=== PATIENT | female | born 2000 | race Caucasian/White ===

== ENCOUNTER 2021-08-09 23:20 | Emergency (ER) | payer BC, OTHER | END 2021-08-10 00:12 | disposition left against medical advice (07) | LOC: ER 23:20 | DX: N93.9 Abnormal uterine and vaginal bleeding, unspecified (principal); Z53.21 Procedure and treatment not carried out due to patient leaving prior to being seen by health care provider ==

== ENCOUNTER 2021-08-10 14:59 | Emergency (ER) | payer BC ==
[~2021-08-10] VITALS: Ht 157.5 cm; Wt 108.0 kg
[2021-08-10 15:51] VITALS: BP 127/93
--- NOTE | 2021-08-10 16:17 | ER.PDOC ---
General Chief Complaint: Female Urogenital Problems Stated Complaint: FEMALE Time seen by MD: 16:09 Source: patient Exam Limitations: no limitations History of Present Illness Initial Comments This is a 21-year-old female who has a history of PCOS who has had pain and bleeding for the past 3 months. She recently moved from [place] to here and does not have a primary caregiver. She is worried she may have anemia.The patient used to have a ring IUD but this perforated through her cervix and so they had it removed. She is currently taking Metformin for her PCOS. Severity/Quality: moderate Vaginal Bleed: abnormal bleeding, heavier than periods LMP (females 10-50): 3 months Contraceptive: none Allergies: Coded Allergies: amoxicillin (Verified Allergy, Unknown, 08/10/21) diphenhydramine (Verified Allergy, Unknown, 08/10/21) ketorolac (Verified Allergy, Unknown, 08/10/21) Past Medical History Medical History: other Surgical History: cholecystectomy, tonsillectomy Social History Alcohol Use: none Drug Use: none Review of Systems Constitutional: denies no symptoms reported, denies see HPI, denies chills, denies diaphoresis, denies fever, denies malaise, denies weakness, denies other EENTM: denies no symptoms reported, denies see HPI, denies eye pain, denies blurred vision, denies tearing, denies double vision, denies ear pain, denies ear discharge, denies nose pain, denies nose congestion, denies throat pain, denies throat swelling, denies mouth pain, denies mouth swelling, denies other Respiratory: denies no symptoms reported, denies see HPI, denies cough, denies orthopnea, denies shortness of breath, denies stridor, denies wheezing, denies other Cardiovascular: denies no symptoms reported, denies see HPI, denies chest pain, denies edema, denies palpitations, denies syncope, denies other Gastrointestinal: denies no symptoms reported, denies see HPI, denies abdominal pain, denies constipation, denies diarrhea, denies nausea, denies vomiting, denies other Genitourinary: denies no symptoms reported, denies see HPI, denies burning, denies discharge, denies dysuria, denies frequency, denies flank pain, denies hematuria, denies incontinence, denies pain, denies urgency, denies other Musculoskeletal: denies no symptoms reported, denies see HPI, denies back pain, denies gout, denies joint pain, denies joint swelling, denies muscle pain, denies muscle stiffness, denies neck pain, denies other Skin: denies no symptoms reported, denies see HPI, denies change in color, denies change in hair/nails, denies dryness, denies lesions, denies lumps, denies rash, denies other Psychiatric/Neurological: denies no symptoms reported, denies see HPI, denies anxiety, denies depressed, denies emotional problems, denies headache, denies numbness, denies paresthesia, denies pre-existing deficit, denies seizure, denies tingling, denies tremors, denies weakness, denies other Endocrine: denies no symptoms reported, denies see HPI, denies excessive sweating, denies flushing, denies intolerance to cold, denies intolerance to heat, denies increased hunger, denies increased thrist, denies increased urine, denies unexplained weight gain, denies unexplaned weight loss, denies other Hematologic/Lymphatic: denies no symptoms reported, denies see HPI, denies anemia, denies blood clots, denies easy bleeding, denies easy bruising, denies swollen glands, denies other All Other Systems: Reviewed and Negative Physical Exam General Appearance: No Apparent Distress, WD/WN, Other (BMI greater than 35) EENT: eyes nml inspection, nml ENT inspection, pharynx nml Neck: nml inspection, non-tender Cardiovascular/Respiratory: Regular Rate, Rhythm, No M/R/G, Normal Peripheral Pulses, No JVD, Normal Breath Sounds, No Respiratory Distress Abdomen: Normal Bowel Sounds, Non Tender, Soft, No Organomegaly, No Pulsatile Mass Back: nml inspection Pelvic: External Exam Normal Extremities: Normal Range of Motion, Non-Tender, Normal Inspection, No Pedal Edema, No Calf Tenderness, Normal Capillary Refill Neurologic/Psychiatric: parole or probation officer II-XII NML as Tested, No Motor/Sensory Deficits, Alert, Normal Mood/Affect, Oriented x 3 Skin: Normal Color, Warm/Dry Lymphatic: No Adenopathy Results/Orders Results/Orders Orders - LUANNE RAMIRES MD Cbc With Auto Diff (08/10/21 16:17) Comprehensive Metabolic Panel (08/10/21 16:17) Vital Signs Date Time Temp Pulse Resp B/P (MAP) Pulse Ox O2 Delivery O2 Flow Rate FiO2 08/10/21 15:51 98.7 66 18 127/93 (104) 95 Room Air 08/10/21 15:51 98.7 66 18 95 08/10/21 15:51 98.7 66 18 Laboratory Tests Test 08/10/21 16:10 White Blood Count 7.2 10^3/uL (4.5-11.0) Red Blood Count 4.02 10^6/uL (4.00-5.20) Hemoglobin 12.3 g/dL (12.0-15.0) Hematocrit 37.4 % (36.0-46.0) Mean Corpuscular Volume 93.0 fL (78-100) Mean Corpuscular Hemoglobin 30.6 pg (26-34) Mean Corpuscular Hemoglobin Concent 32.9 g/dL (33-36.5) L Red Cell Distribution Width 13.2 % (11.5-14.5) Platelet Count 270 10^3/uL (150-400) Mean Platelet Volume 9.6 fL (7.8-11.0) Neutrophils (%) (Auto) 41.0 % (41.0-85.0) Lymphocytes (%) (Auto) 48.2 % (24.0-44.0) H Monocytes (%) (Auto) 8.1 % (5.0-12.0) Neutrophils # (Auto) 2.9 10^3/uL (1.8-7.7) Lymphocytes # (Auto) 3.45 10^3/uL1 (1.0-4.8) Monocytes # (Auto) 0.6 10^3/uL (0.3-0.8) Absolute Immature Granulocyte (auto 0.01 10^3 u/L (0-2) Absolute Eosinophils (auto) 0.1 10^3/uL (0.0-0.2) Immature Granulocytes % 0.10 % (0.00-0.50) Eosinophils % 2.0 % (0.0-5.0) Basophils % 0.6 % (0.0-0.2) H Basophils # 0.0 10^3/uL (0.0-0.1) Sodium Level 143 mmol/L (132-145) Potassium Level 3.6 mmol/L (3.6-5.2) Chloride Level 109.0 mmol/L (96-109) Carbon Dioxide Level 24.4 mmol/L (20.0-32) Anion Gap 13.2 Blood Urea Nitrogen 13 mg/dL (7-18) Creatinine 0.81 mg/dL (0.59-1.40) Estimated GFR () 106.0 (>/=60) Est GFR (CKD-EPI)(Non-Afr Estonian) 87.6 (>/=60) BUN/Creatinine Ratio 16.0 Glucose Level 93 mg/dL (70-110) Calcium Level 8.7 mg/dL (8.4-10.5) Total Bilirubin 0.3 mg/dL (0.2-1.0) Aspartate Amino Transferase (AST) 37 U/L (0-35) H Alanine Aminotransferase (ALT) 92 U/L (12-78) H Alkaline Phosphatase 54 U/L (50-136) Total Protein 6.5 g/dL (6.4-8.2) Albumin 3.4 g/dL (3.4-5.0) Globulin 3.1 Albumin/Globulin Ratio 1.096 Progress Progress Patient is not anemic, she will need to follow-up with an [employer] doctor for f urther evaluation and treatment. ER DEPART Departure Time of Disposition: 16:52 Disposition: 01 HOME / SELF CARE / HOMELESS Impression: Primary Impression: Menometrorrhagia Condition: Stable Patient Instructions: Dysmenorrhea Referrals: PCP,UNKNOWN (PCP) PRIMARY CARE PROVIDER Additional Instructions: Make sure to take ibuprofen every 8 hours with food. This will help stop bleeding in the uterus. You will need to follow-up with [employer] doctor for possible other treatments. Duration or Time Spent with Pa: Unknown LUANNE RAMIRES MD Aug 10, 2021 16:16
[2021-08-10 16:22] LABS: BASOPHIL % 0.6 % (0.0-0.2); EOSINOPHIL # 0.1 10^3/uL (0.0-0.2); LYMPHOCYTES # 3.45 10^3/uL1 (1.0-4.8); LYMPHOCYTES % 48.2 % (24.0-44.0); MEAN CORP HGB 30.6 pg (26-34); MONOCYTES # 0.6 10^3/uL (0.3-0.8); MONOCYTES % 8.1 % (5.0-12.0); NEUTROPHIL # 2.9 10^3/uL (1.8-7.7); PLATELET COUNT 270 10^3/uL (150-400); RED CELL DISTRIBUTION WIDTH 13.2 % (11.5-14.5)
[2021-08-10 16:37] LABS: CARBON DIOXIDE 24.4 mmol/L (20.0-32)
== END 2021-08-10 17:02 | disposition home or self-care (01) ==
LOC: ER 14:59
DX: N92.1 Excessive and frequent menstruation with irregular cycle (principal); Z88.0 Allergy status to penicillin; Z90.49 Acquired absence of other specified parts of digestive tract
CPT/HCPCS: 36415; 80053; 85025; 99283

== ENCOUNTER 2021-09-20 13:43 | Emergency (ER) | payer BC ==
[~2021-09-20] VITALS: Ht 162.6 cm; Wt 127.0 kg
[2021-09-20 15:36] VITALS: BP 147/99
[2021-09-20 15:40] VITALS: BP 147/99
--- NOTE | 2021-09-20 16:11 | ER.PDOC ---
General Chief Complaint: General Complaint Stated Complaint: SINUS Time seen by MD: 16:09 Source: patient Exam Limitations: no limitations History of Present Illness Initial Comments Sinus pain, pressure and nasal congestion for 4 weeks. No fever or chills. Timing/Duration: gradual Severity: moderate Associated Symptoms: sinus pain/drainage Allergies: Coded Allergies: amoxicillin (Verified Allergy, Unknown, 08/10/21) diphenhydramine (Verified Allergy, Unknown, 08/10/21) ketorolac (Verified Allergy, Unknown, 08/10/21) Constitutional: no symptoms reported EENTM: see HPI Respiratory: no symptoms reported Cardiovascular: no symptoms reported Gastrointestinal: no symptoms reported All Other Systems: Reviewed and Negative Past Medical History Medical History: other Surgical History: cholecystectomy, tonsillectomy Family History Significant Family History: no pertinent family hx Social History Smoking: non-smoker Alcohol Use: none Drug Use: none Physical Exam General Appearance: alert, no distress Eye: pain on precuss of sinus (maxillary) Nose: rhinorrhea Throat: pharynx nml, airway nml Neck: nml inspection, supple Respiratory: no resp.distress, breath sounds nml Abdomen: non-tender, no organomegaly CVS: reg rate & rhythm, heart sounds nml Skin: color nml, no rash, warm/dry Extremities: non-tender, nml ROM, no pedal edema NEURO/PSYCH: oriented x 3, CN's nml as tested, motor nml, sensation nml, mood/affect nml Results/Orders Results/Orders Vital Signs Date Time Temp Pulse Resp B/P (MAP) Pulse Ox O2 Delivery O2 Flow Rate FiO2 09/20/21 15:40 98.8 74 20 147/99 (115) 100 Room Air 09/20/21 15:36 98.8 74 20 100 09/20/21 15:36 98.8 74 20 Progress Progress Patient refused COVID testing. ER DEPART Departure Time of Disposition: 16:10 Disposition: 01 HOME / SELF CARE / HOMELESS Impression: Primary Impression: Sinusitis Condition: Stable Referrals: PCP,UNKNOWN (PCP) PRIMARY CARE PROVIDER Additional Instructions: Z-[place]olo Medrol Dosepak Continue Afrin nose drops at home Continue Claritin at home Follow-up with your PCP 1 week Return to ED if worsening symptoms or concerns Duration or Time Spent with Pa: 10 min Problem Qualifiers Primary Impression: Sinusitis Sinusitis location: maxillary Chronicity: subacute Qualified Codes: J01.00 - Acute maxillary sinusitis, unspecified JEANNIE TAVARES MD Sep 20, 2021 16:11
== END 2021-09-20 16:17 | disposition home or self-care (01) ==
LOC: ER 13:43
DX: J01.00 Acute maxillary sinusitis, unspecified (principal); J34.89 Other specified disorders of nose and nasal sinuses; Z88.0 Allergy status to penicillin; Z90.49 Acquired absence of other specified parts of digestive tract
CPT/HCPCS: 99281